=== PATIENT | male | born 1990 | race African-American/Black ===

== ENCOUNTER 2017-07-20 14:22 | Emergency (ER) | payer OTHER ==
[~2017-07-20] VITALS: Ht 175.3 cm; Wt 86.2 kg
[2017-07-20 16:37] VITALS: BP 146/83
[2017-07-20] MEDS ORDERED: traMADol HCL 50 MG TAB PO ONE (17:15)
== END 2017-07-20 17:20 | disposition home or self-care (01) ==
LOC: ER 14:27
DX: S93.401A Sprain of unspecified ligament of right ankle, initial encounter (principal); Z88.8 Allergy status to other drugs, medicaments and biological substances; W01.0XXA Fall on same level from slipping, tripping and stumbling without subsequent striking against object, initial encounter; Y93.89 Activity, other specified; Y92.89 Other specified places as the place of occurrence of the external cause; Y99.8 Other external cause status
CPT/HCPCS: 73610